=== PATIENT | female | born 1960 | race Caucasian/White ===

== ENCOUNTER 2018-02-25 11:38 | Emergency (ER) | payer OTHER | END 2018-02-25 13:24 | disposition home or self-care (01) | LOC: FTE 11:38 | DX: S99.911A Unspecified injury of right ankle, initial encounter (principal); W10.9XXA Fall (on) (from) unspecified stairs and steps, initial encounter; Y92.9 Unspecified place or not applicable; Z85.41 Personal history of malignant neoplasm of cervix uteri | CPT/HCPCS: 73610; 73610-RT; 73630; 99283-25 ==